=== PATIENT | male | born 1985 | race Caucasian/White ===

== ENCOUNTER 2022-02-06 15:01 | Outpatient (CLI) | payer SELFPAY ==
--- NOTE | 2022-02-06 15:12 | RAD_ITS ---
STUDY: X-RAY - SACRUM/COCCYX REASON FOR EXAM: Male, 36 years old. TAILBONE INJURY TECHNIQUE: view(s) of the sacrum and coccyx were obtained. COMPARISON: None. FINDINGS: No definite fracture demonstrated. The sacroiliac joints are symmetric bilaterally. RAD/Sacrum-Coccyx min 2 Views IMPRESSION: No definite evidence of fracture. Electronically Signed: Leesa Lopez MD at 5:16 EDT ,
== END 2022-02-06 23:59 | disposition home or self-care (01) ==
PROVIDERS: PCP Family Medicine; Referring Provider Family Medicine; Visit Provider Family Medicine
DX: S39.92XA Unspecified injury of lower back, initial encounter (principal)
CPT/HCPCS: 72220

== ENCOUNTER 2022-02-07 08:17 | Outpatient (CLI) | payer SELFPAY ==
[2022-02-07 10:08] LABS: Anion Gap 6 (5-15); BUN 14 mg/dL (7-18); BUN/Creat Ratio 15.3 RATIO (10-20); Calcium,Total 8.9 mg/dL (8.5-10.1); Chloride 107 mmol/L (98-107); Cholesterol 182 mg/dL (200); Creatinine, Serum 0.91 mg/dL (0.70-1.30); EST Glomerular Filtration Rate 100 mL/min (>60); Est Glom Filt Rate - Afr Amer 120 mL/min (>60); Glucose 96 mg/dL (74-106); High Density Lipoprotein 28 mg/dL; Potassium 3.8 mmol/L (3.5-5.1); Sodium Level 140 mmol/L (136-145); Triglycerides 213 mg/dL; Very Low Density Lipoprotein 43 mg/dL (5-40)
[2022-02-07 10:10] LABS: Vitamin D,25 Hydroxy 25.5 ng/mL
== END 2022-02-07 23:59 | disposition home or self-care (01) ==
PROVIDERS: PCP Family Medicine; Referring Provider Family Medicine; Visit Provider Family Medicine
DX: Z00.00 Encounter for general adult medical examination without abnormal findings (principal)
CPT/HCPCS: 36415; 80048; 80061; 82306